=== PATIENT | female | born 1995 | race Caucasian/White ===

== ENCOUNTER → 2017-08-21 | Outpatient (CLI) | payer BC ==
--- NOTE | 2017-08-21 10:22 | USB ---
Reason for exam: clinical finding. Indicated problem(s): non-bloody discharge in the left breast. Physical Findings: Nurse did not find any significant physical abnormalities on exam. US Breast LT Left breast ultrasound includes all four quadrants, the retroareolar region and axilla. Finding demonstrates no cystic or solid lesion seen. These results were verbally communicated with the patient and result sheet given to the patient on 08/21/17. ASSESSMENT: Negative, BI-RAD 1 RECOMMENDATION: Routine screening mammogram of both breasts at age 41. Manage on a clinical basis with regard to left nipple discharge. Suspicious discharge that would warrant further evaluation would be spontaneous clear or bloody localized to a single pore on the nipple.
== END | disposition home or self-care (01) ==
LOC: RADUSWWP 09:34
PROVIDERS: ATTEND Internal Medicine
DX: O92.6 Galactorrhea (principal)

== ENCOUNTER → 2018-11-22 | Outpatient (CLI) | payer BC ==
--- NOTE | 2018-11-22 14:14 | CT ---
EXAMINATION TYPE: CT sinus wo con DATE OF EXAM: 11/22/2018 COMPARISON: NONE HISTORY: Nasal polyp. Chronic sinusitis per order. CT DLP: 575 mGycm. Automated Exposure Control for Dose Reduction was Utilized. TECHNIQUE: CT scan of the sinuses is performed without contrast, axial images are obtained, coronal r eformatted images are also reviewed. FINDINGS: There is mild to moderate mucosal thickening involving inferior aspect bilateral maxillary sinuses. There is mild to moderate mucosal thickening involving ethmoid sinuses bilaterally. The fron flor and sphenoid sinuses show no suspicious opacification or mucosal thickening. No suspicious air-f luid levels are present. The ostiomeatal complex is patent on the left on the coronal images. There i s antral opacity causing blocking on the right coronal image 25 Visualized portion of mastoid air cells show no abnormal opacification. The globes are intact bilate rally. IMPRESSION: Chronic paranasal sinus disease as detailed above. No acute sinusitis. Occluded right os tiomeatal complex noted.
== END | disposition home or self-care (01) ==
LOC: RADCTMAIN 13:16
PROVIDERS: ATTEND Otolaryngology
DX: J32.9 Chronic sinusitis, unspecified (principal)
CPT/HCPCS: 70486

== ENCOUNTER → 2018-11-27 | Outpatient (CLI) | payer BC | END | disposition home or self-care (01) | LOC: LABWHC1 14:24 | PROVIDERS: ATTEND Otolaryngology | DX: J30.89 Other allergic rhinitis (principal) | CPT/HCPCS: 36415 ==

== ENCOUNTER → 2019-05-09 | Outpatient (CLI) | payer BC ==
--- NOTE | 2019-05-09 22:21 | MR ---
EXAMINATION TYPE: MR pituitary wo/w con DATE OF EXAM: 05/09/2019 COMPARISON: NONE HISTORY: Elevated Prolactin Levels, Nipple Discharge TECHNIQUE: Multiplanar, multisequence images of the brain and brainstem is performed without and with IV contras t, utilizing 6.5 mL intravenous Gadavist . Pituitary gland protocol. FINDINGS: Pituitary gland is within normal limits in size at the level of the sella turcica. Suprasel lar cistern is maintained. Pituitary stalk shows normal enhancement in the midline. Postcontrast imag es show fairly homogeneous enhancement without area of nonenhancement to suggest microadenoma. Optic chiasm is not effaced. Adjacent carotid siphons are maintained. No gross hydrocephalus. Visualized cr aniocervical junction is felt within normal limits. IMPRESSION: No MRI evidence for pituitary micro or macroadenoma.
== END | disposition home or self-care (01) ==
LOC: RADMRIMAIN 16:41
PROVIDERS: ATTEND Obstetrics & Gynecology Obstetrics
DX: E22.9 Hyperfunction of pituitary gland, unspecified (principal)
CPT/HCPCS: 70553; A9585

== ENCOUNTER → 2019-10-10 | Outpatient (CLI) | payer BC ==
[2019-10-10 11:32] LABS: Basophils # (A) 0.1 k/uL (0-0.2); Basophils % (A) 1 %; Eosinophils # (A) 0.5 k/uL (0-0.7); Eosinophils % (A) 7 %; HCT 41.8 % (34.0-46.0); Lymphocytes # (A) 1.8 k/uL (1.0-4.8); Lymphocytes % (A) 29 %; MCH 26.9 pg (25.0-35.0); MCHC 31.2 g/dL (31.0-37.0); MCV 86.3 fL (80.0-100.0); Mean Platelet Volume 6.8; Monocytes # (A) 0.4 k/uL (0-1.0); Monocytes % (A) 6 %; Neutrophils # (A) 3.4 k/uL (1.3-7.7); Neutrophils % (A) 55 %; Platelet Count 289 k/uL (150-450); RBC 4.85 m/uL (3.80-5.40); RDW 12.8 % (11.5-15.5); WBC 6.2 k/uL (3.8-10.6)
[2019-10-10 16:15] LABS: African American GFR (CKD) 120.4 (60.0-200.0); Albumin 4.3 g/dL (3.80-4.90); Albumin/Globulin Ratio 1.72 (1.60-3.17); Anion Gap 5.6 mmol/L (4.00-12.00); BUN/Creat Ratio 11.25 Ratio (12.00-20.00); Calcium 9.6 mg/dL (8.7-10.3); Carbon Dioxide 24.4 mmol/L (21.6-31.8); Globulin 2.5 g/dL (1.6-3.3); Non-African American GFR(CKD) 103.9 (60.0-200.0); Potassium 4.6 mmol/L (3.5-5.5); Total Bilirubin 0.4 mg/dL (0.3-1.2); Total Protein 6.8 g/dL (6.2-8.2)
[2019-10-10 17:39] LABS: Gliadin AB IgA, Deaminated NEGATIVE (NEGATIVE); Gliadin AB IgA, Unit <0.2 U/mL; Gliadin AB IgG, Deaminated NEGATIVE (NEGATIVE)
== END | disposition home or self-care (01) ==
LOC: LABWHC1 10:32
PROVIDERS: ATTEND Internal Medicine
DX: K59.09 Other constipation (principal)
CPT/HCPCS: 36415; 80053; 83516; 84439; 84443; 85025

== ENCOUNTER → 2019-12-15 | Outpatient (CLI) | payer BC | END | disposition home or self-care (01) | LOC: LABWHC1 10:18 | PROVIDERS: ATTEND Obstetrics & Gynecology Obstetrics | DX: U07.1 COVID-19 (principal) | CPT/HCPCS: U0003; C9803 ==

== ENCOUNTER → 2020-06-03 | Outpatient (CLI) | payer BC ==
--- NOTE | 2020-06-03 10:33 | USB ---
Reason for exam: clinical finding. History: Patient is nulliparous. Taking hormonal contraceptives beginning at age 18. Indicated problem(s): lump or thickening in the left breast. Physical Findings: Nurse Summary: palpable felt on nipple, 0.5cm behind nipple (nurse dw). US Breast LT Left complete breast ultrasound includes all four quadrants, the retroareolar region and axilla. Finding demonstrates a 0.6 x 0.6 x 0.3cm cystic lesion at the nipple. These results were verbally communicated with the patient and result sheet given to the patient on 06/03/20. ASSESSMENT: Benign, BI-RAD 2 RECOMMENDATION: Clinical management of the left breast. Manage patient on a clinical basis.
== END | disposition home or self-care (01) ==
LOC: RADUSWWP 09:30
PROVIDERS: ATTEND Obstetrics & Gynecology Obstetrics
DX: N63.20 Unspecified lump in the left breast, unspecified quadrant (principal); N64.52 Nipple discharge

== ENCOUNTER 2021-04-04 10:18 | Emergency (ER) | payer BC ==
[~2021-04-04 10:18] MED LIST: SODIUM CHLORIDE 0.9% 500 ML 500 ML in EMPTY BAG 1 BAG IV PRN
[2021-04-04 12:48] VITALS: TEMP 98.7
--- NOTE | 2021-04-04 13:23 | ED ---
URI HPI - General Chief Complaint: Upper Respiratory Infection Stated Complaint: Covid+/antibodies Time Seen by Provider: 04/04/21 12:53 Source: patient, RN notes reviewed Mode of arrival: ambulatory Limitations: no limitations - History of Present Illness Initial Comments: 26-year-old female presents emergency Department with chief complaint of positive COVID-19. Patient has a positive at work. Patient states that symptoms started yesterday worsened today. Patient states she has fever cough congestion bodyaches. Patient denies any chest pain no nausea vomiting diarrhea constipation no severe past medical history no prior vaccine no prior COVID-19 infection - Related Data Allergies Allergy/AdvReac Type Severity Reaction Status Date / Time sulfamethoxazole AdvReac Unknown Verified 04/04/21 12:48 [From Bactrim] trimethoprim [From Bactrim] AdvReac Unknown Verified 04/04/21 12:48 Review of Systems ROS Statement: Those systems with pertinent positive or pertinent negative responses have been documented in the HPI. ROS Other: All systems not noted in ROS Statement are negative. Past Medical History History of Any Multi-Drug Resistant Organisms: None Reported Past Surgical History: Tonsillectomy Additional Past Surgical History / Comment(s): nasal polyp removal Past Psychological History: No Psychological Hx Reported Smoking Status: Vaper Past Alcohol Use History: Occasional Past Drug Use History: None Reported General Exam Limitations: no limitations General appearance: alert, in no apparent distress Head exam: Present: atraumatic, normocephalic, normal inspection Eye exam: Present: normal appearance, PERRL, EOMI. Absent: scleral icterus, conjunctival injection, periorbital swelling ENT exam: Present: normal exam, normal oropharynx, mucous membranes moist Neck exam: Present: normal inspection, full ROM. Absent: tenderness, meningismus, lymphadenopathy Respiratory exam: Present: normal lung sounds bilaterally. Absent: respiratory distress, wheezes, rales, rhonchi, stridor Cardiovascular Exam: Present: regular rate, normal rhythm, normal heart sounds. Absent: systolic murmur, diastolic murmur, rubs, gallop, clicks Course Vital Signs 04/04/21 12:42 Temperature 98.7 F Pulse Rate 63 Respiratory 18 Rate Blood Pressure 147/77 O2 Sat by Pulse 100 Oximetry Medical Decision Making - Medical Decision Making Patient received monoclonal antibodies will be discharged in stable condition return parameters were discussed. Disposition Clinical Impression: COVID-19 Disposition: HOME SELF-CARE Condition: Stable Instructions (If sedation given, give patient instructions): Coronavirus Disease 2019 (COVID-19) Additional Instructions: Please return to the Emergency Department if symptoms worsen or any other concerns. Is patient prescribed a controlled substance at d/c from ED?: No Referrals: Obdulia Zee MD [Primary Care Provider] - 1-2 days
[2021-04-04] MEDS ORDERED: SODIUM CHLORIDE 0.9% 50 ML IVPB ONE (13:45)
[2021-04-04] MEDS ORDERED: BAMLANIVIMAB (EUA) 700 MG, ETESEVIMAB (EUA) 1,400 MG in SODIUM CHLORIDE 0.9% 50 ML IVPB ONE (13:45)
[2021-04-04] MEDS ORDERED: SODIUM CHLORIDE 0.9% 500 ML 500 ML in EMPTY BAG 1 BAG IV PRN (14:01)
[2021-04-04 15:38] VITALS: BP 135/79; PULSE 71; RESP 18
== END 2021-04-04 15:46 ==
LOC: PROCWHC3 10:18 → EC 10:18 → EDSTATUS 10:31 → PROCWHC3 15:46
DX: U07.1 COVID-19 (principal); F17.290 Nicotine dependence, other tobacco product, uncomplicated; Z88.2 Allergy status to sulfonamides; Z88.1 Allergy status to other antibiotic agents; Z90.89 Acquired absence of other organs
CPT/HCPCS: 99283; 96360; J3490; M0243